=== PATIENT | female | born 1960 | race Two or more races ===

== ENCOUNTER 2020-04-19 04:26 | Inpatient (IN) | payer MEDICAID ==
[~2020-04-19] VITALS: Ht 165.1 cm; Wt 68.0 kg
[2020-04-19 06:43] VITALS: BP 142/83
--- NOTE | 2020-04-19 06:44 | NUR ---
PAGED HOSPITALIST FOR ADMITTING ORDERS AWAITING ORDERS WILL ENDORSE
--- NOTE | 2020-04-19 06:45 | NUR ---
FRONT END SPECIALIST RECEIVED PT FROM [facility] DIRECT ADMIT PT A/O X4, STABLE CONDITION IN NO APPARENT DISTRESS, VS STABLE, SAFETY MEASURES IN PLACE. PLACED ON CARDIAC CATH LAB MANAGER SR 70'S HR, KEPT CLEAN, DRY AND COMFORTABLE. WILL ENDORSE NEXT SHIFT FOR ADMIT ASSESSMENT.
--- NOTE | 2020-04-19 07:30 | NUR ---
RN Opening Received patient AO x 4, Moldovan speaking, able to responds all stimuli. Respiratory even and unlabored on room air 98%, no distress observed. Symmetric face smile, bilateral arm/leg left but c/o left hand numbness. Skin is warm to touch, kept clean/dry, intact IV site site. keep bed in lock with elevated HOB for ensure airway and aspiration precaution, call light within reach, will continue to monitor
[2020-04-19 11:53] LABS: BASOPHILS # (AUTO) 0.1 /CMM (0.0-0.2); BASOPHILS % (AUTO) 2.2 % (0.0-2.0); EOSINOPHILS % (AUTO) 0.9 % (0.0-6.0); HEMATOCRIT 37 % (33-45); HEMOGLOBIN 12.1 g/dL (11.5-14.8); LYMPHOCYTES % (AUTO) 20.1 % (20.0-44.0); MEAN CORPUSCULAR HGB CONC 32 g/dl (31.0-36.0); MEAN CORPUSCULAR VOLUME 83 fL (82-100); MONOCYTES # (AUTO) 0.4 /CMM (0.1-1.30); MONOCYTES % (AUTO) 7.1 % (2.0-12.0); NEUTROPHILS # (AUTO) 3.5 /CMM (1.8-8.9); NEUTROPHILS % (AUTO) 69.7 % (43.0-81.0); PLATELET COUNT (AUTO) 248 /CMM (150-450); RED BLOOD CELL COUNT(AUTO) 4.51 MIL/uL (4.0-5.2)
[2020-04-19] MEDS ORDERED: BLOOD SUGAR DIAGNOSTIC 1 EACH STRIP IN SCH (12:00)
[2020-04-19 12:16] LABS: CALCIUM, SERUM 8.7 mg/dL (8.5-10.1); CREATININE 0.8 mg/dL (0.6-1.3); POTASSIUM 3.7 mmol/L (3.5-5.1)
[2020-04-19] MEDS: ENOXAPARIN SODIUM 40 MG/0.4 ML DISP.SYRIN SQ SCH (12:40)
[2020-04-19] MEDS: BLOOD SUGAR DIAGNOSTIC 1 EACH STRIP IN SCH ×3 (12:41→21:07)
--- NOTE | 2020-04-19 12:53 | NUR ---
Patient has been ordered d/c to psych unit ordered by Dr. Hayes, clarified with Dr. Artem bryant to d/c to psych unit. Addendum: 04/19/20 at 1835 by ANN FUENTES RN Error
[2020-04-19] MEDS: MAG HYDROX/AL HYDROX/SIMETH 30 ML UDC PO PRN ×2 (12:58→20:56)
--- NOTE | 2020-04-19 18:37 | NUR ---
RN note Closing Patient resting in bed, remains AO x 4, does no c/o pain or distress, but numbness on left hand through wrist. Respiratory even and unlabored on room air. Skin is warm to touch keep clean/dry, intact IV site. Pt is on SCD for DVT prophylaxis. Keep bed in locked with elevated HOB and low position of bed. Call light within reach, will endorse shift production associate.
--- NOTE | 2020-04-19 19:30 | NUR ---
RN Opening Note Received patient in bed, AO x 4, able to responds all stimuli. Pt denies pain or any discomfort. Respiratory even and unlabored on room air. No resp distress. No sob. pts skin is warm to touch, keep clean/dry, intact IV site with SL. Keep low position of the bed with elevated HOB for ensure airway and bed in locked. Call light within reach, will continue to monitor. Addendum: 04/20/20 at 2347 by ARI SALDANA RN time documented [id number] at 04/20/20
--- NOTE | 2020-04-19 19:36 | NUR ---
MS RN RECEIVE PT A/O X 3, AWAKE WATCHING TV, NO S/S OF DISTRESS. STABLE CONDITION. SAFETY MEASURES AT ALL TIMES. WILL CONT TO MONITOR.
[2020-04-19 20:00] VITALS: BP 127/73
[2020-04-19] MEDS: ATORVASTATIN 40 MG TABLET PO SCH (21:08)
[2020-04-20] VITALS: BP_SYST 125; BP_SYST 128; BP_DIAS 76; BP_DIAS 78
[2020-04-20 04:00] VITALS: BP 121/72
--- NOTE | 2020-04-20 05:49 | NUR ---
TRENCHER DRIVER ASLEEP AND EASILY AWAKEN, IN NO APPARENT DISTRESS, SB 58'S HR IN TELE MONITOR, NO COMPLAIN OF CHEST PAIN, NEEDS ATTENDED AND ANTICIPATED, KEPT CLEAN, DRY AND COMFORTABLE AT ALL TIMES. SAFETY MEASURES IN PLACE. WILL ENDORSE TO NEXT SHIFT.
[2020-04-20] MEDS: BLOOD SUGAR DIAGNOSTIC 1 EACH STRIP IN SCH ×4 (05:59→21:15)
--- NOTE | 2020-04-20 07:30 | NUR ---
RN Opening Note Received patient in bed, AO x 4, able to responds all stimuli. Pt denies pain or any discomfort. Respiratory even and unlabored on room air, skin is warm to touch, keep clean/dry, intact IV site with SL. Keep low position of the bed with elevated HOB for ensure airway and bed in locked. Call light within reach, will continue to monitor.
[2020-04-20 08:00] VITALS: BP 113/79
[2020-04-20] MEDS: ENOXAPARIN SODIUM 40 MG/0.4 ML DISP.SYRIN SQ SCH (08:32)
[2020-04-20] MEDS: ASPIRIN EC 325 MG TABLET.DR PO SCH (08:32)
--- NOTE | 2020-04-20 09:39 | NUR ---
MRSA sample collected and put it in refrigerator, lab made aware
--- NOTE | 2020-04-20 10:30 | NUR ---
Obtained consent sign for MRI/brain.
--- NOTE | 2020-04-20 12:25 | NUR ---
Informed and OIL PIPE INSPECTOR/Coni regarding MRI result.
[2020-04-20 16:00] VITALS: BP 150/70
--- NOTE | 2020-04-20 18:13 | NUR ---
RN Closing Note Patient in bed, does no appears pain or distress. Respiratory even and unlabored on room air O2sat 98%, no distress observed. Skin is warm to touch, kept clean/dry, intact IV site with SL, Patient done PT/OT, MRI result informed MD. Keep bed in locked with HOB for ensure airway and aspiration precaution. Call light within reach, all needs met. Will endorse awake overnight monitor.
--- NOTE | 2020-04-20 19:30 | NUR ---
RN Opening Note Received patient in bed, AO x 4, able to responds all stimuli. Pt denies pain or any discomfort. Respiratory even and unlabored on room air. No resp distress. No sob. pts skin is warm to touch, keep clean/dry, intact IV site with SL. Keep low position of the bed with elevated HOB for ensure airway and bed in locked. Call light within reach, will continue to monitor.
[2020-04-20 20:00] VITALS: BP 119/77
[2020-04-20 20:32] VITALS: BP 119/77
[2020-04-20] MEDS: ATORVASTATIN 40 MG TABLET PO SCH (21:24)
--- NOTE | 2020-04-21 06:31 | NUR ---
RN Closing Note Patient in bed, does no appears pain or distress. Respiratory even and unlabored on room air O2sat 98%, no distress observed. IV, intact site with no redness. Keep bed in locked with HOB for ensure airway and aspiration precaution. Call light within reach, all needs met.
[2020-04-21] MEDS: BLOOD SUGAR DIAGNOSTIC 1 EACH STRIP IN SCH ×4 (06:39→22:18)
--- NOTE | 2020-04-21 08:00 | NUR ---
m/s front desk officer: initial assessment received pt in bed awake, a/ox4; ambulatory. pt still has difficulty grasping her left hand, but continue to do self exercise and arom. instructed to call for assistance. will continue to monitor.
[2020-04-21] MEDS: ASPIRIN EC 325 MG TABLET.DR PO SCH (08:45)
[2020-04-21] MEDS: ENOXAPARIN SODIUM 40 MG/0.4 ML DISP.SYRIN SQ SCH (08:48)
--- NOTE | 2020-04-21 11:00 | NUR ---
m/s hoop maker machine: md visit seen and examined by simon altamirano (acnp) at this time. updated plan of care.
--- NOTE | 2020-04-21 14:30 | NUR ---
m/s bell hole digger: notes urine collected via clean catch. called lab to strip picker the specimen in ref.
--- NOTE | 2020-04-21 15:24 | NUR ---
11:30am : Hobbing Machine Operator consult requested per Dr. Lopez. This SW met the patient at bedside. Patient was alert and oriented x4. This SW asked the patient if she preferred Israeli or South African for SW to conduct this assessment. The patient stated that she preferred Israeli. Patient is a 59-year-old female. Pt lives with her son, Bruno at [address] [place] [address]. Patients primary emergency contact is her son Elan followed by Bruno . Patient was indepenendt with her activities of daily living prior to this hospitalization. Patient reported that she has 4 children and 8 grandchildren, who she sees at a safe distance right now due to COVID-19. Patient shared that she is a cancer survivor, previously diagnosed with intestinal cancer. Patient shared that throughout all her medical problems, and current hospitalization, her family has been her main source of support. Patient reports that she does not receive any GR benefits and is financially supported by her 4 children, mainly her son Bruno who lives in the home. Patient reports no history of alcohol or drug use. Patient reports no Suicidal/Homicidal Ideations. Patient reports that she keeps active by doing house chores, cooking, and reading. Patient reports that she began to feel this sensation of a stroke on Tuesday. SW administered the PHQ-9 in the patients big sandy language of Israeli. Based on the patients responses, the patients score is at a 0. No further SS interventions needed at this time, however SW to remain available to the patient, as needed.
--- NOTE | 2020-04-21 16:00 | NUR ---
m/s photographer news: notes resting comfortable. no distress noted. left hand improving, pt continue doing self exercise and arom. instructed to call for assistance.
--- NOTE | 2020-04-21 17:30 | NUR ---
m/s mold swabber: notes having dinner at this time. instructed to call for assistance. needs attended.
[2020-04-21] MEDS: METFORMIN 500 MG TABLET PO SCH (17:32)
--- NOTE | 2020-04-21 19:15 | NUR ---
m/s title i coordinator: notes report given to gabriel (jeff) for continuity of care.
--- NOTE | 2020-04-21 19:34 | NUR ---
ms rn opening note received patient in bed. a/ox4, pashto speaking, able to make basic needs known. tolerating room air. respirations are even and unlabored. no s/s sob noted. no s/s pain at this time. in no apparent distress. iv access in right hand patent and saline locked. bed is low and locked, hob elevated in semi fowlers, side rials up x, call light within reach.will continue to monitor.
[2020-04-21 20:00] VITALS: BP 118/69
[2020-04-21] MEDS: ATORVASTATIN 40 MG TABLET PO SCH (22:18)
[2020-04-22] MEDS: BLOOD SUGAR DIAGNOSTIC 1 EACH STRIP IN SCH ×2 (06:47→12:10)
--- NOTE | 2020-04-22 07:03 | NUR ---
MS RN OPENING NOTES RECEIVED PT AWAKE IN BED AT THIS TIME. AOX4. MAURITIAN SPEAKING. NO SOB NOTED, NO C/O PAIN AT THIS TIME. NO S/S OF ANY ACUTE DISTRESS AT THIS TIME. RESPIRATIONS EVEN AND UNLABORED WITH EQUAL RISE AND FALL IN CHEST. IV ACCESS NOTED IN R-HAND G#20, INTACT, PATENT AND FLUSHING WELL. ASPIRATION AND SAFETY PRECAUTIONS IN PLACE. BED IN LOWEST LOCKED POSITION, HOB ELEVATED, SIDE RAILS UPX2, CALL LIGHT WITHIN REACH. WILL CONTINUE TO MONITOR
--- NOTE | 2020-04-22 07:30 | NUR ---
ms rn closing note patient in bed. a/ox4 tolerating room air. no resp distress, no c/o pain. no distress. iv access maintained in right hand patent and saline locked. bed remains low and locked, hob elevated in semi fowlers, side rials up x, call light within reach.will endorse to next shift.
[2020-04-22 08:00] VITALS: BP 108/61
[2020-04-22] MEDS ORDERED: CLOP75TA15 PO (08:10)
[2020-04-22] MEDS ORDERED: ATOR40TA PO (08:10)
[2020-04-22] MEDS ORDERED: ASPI-1498 PO (08:10)
[2020-04-22] MEDS: ENOXAPARIN SODIUM 40 MG/0.4 ML DISP.SYRIN SQ SCH (08:51)
[2020-04-22] MEDS: METFORMIN 500 MG TABLET PO SCH (08:55)
[2020-04-22] MEDS: ASPIRIN EC 325 MG TABLET.DR PO SCH (08:55)
--- NOTE | 2020-04-22 15:15 | NUR ---
MS NURSE SPECIALIST NOTES PT DISCHARGED HOME AT THIS TIME. PT IN STABLE CONDITION. ALL CARE, TREATMENT, NEEDS AND MEDICATIONS ADMINISTERED ANTICIPATED PER ORDER. PT KEPT CLEAN AND DRY, DISCHARGE INSTRUCTIONS PROVIDED FOR AND PT VERBALIZED UNDERSTANDING. IV ACCCESS IN R-HAND REMOVED, PRESSURE APPLIED, SECURED WITH GAUZE AND TAPE. NO SIGN OF BLEEDING OR INFILTRATION NOTED. ALL BELONGINGS ACCOUNTED FOR, SIGNED AND FILED IN CHART. PT TRANSPORTED TO [facility] BY PATRICIO GRAY ON WHEEL CHAIR. PT PICKED UP BY HALEIGH CORTES) IN PRIVATE CAR.
== END 2020-04-22 15:20 | disposition home or self-care (01) | DRG 45 ==
LOC: TELE 06:21 → MED 04-20 08:29
PROVIDERS: ADMIT Internal Medicine; ATTEND Nurse Practitioner Acute Care
DX: I63.9 Cerebral infarction, unspecified (principal); Z92.3 Personal history of irradiation; Z85.038 Personal history of other malignant neoplasm of large intestine; E11.9 Type 2 diabetes mellitus without complications; G81.94 Hemiplegia, unspecified affecting left nondominant side; R40.2362 Coma scale, best motor response, obeys commands, at arrival to emergency department; R40.2142 Coma scale, eyes open, spontaneous, at arrival to emergency department; R40.2252 Coma scale, best verbal response, oriented, at arrival to emergency department; R29.700 NIHSS score 0
CPT/HCPCS: 36415; 70551-TC; 80048-TC; 80061-TC; 80305; 82962-TC; 83036-TC; 85025-TC; 85652-TC; 87081-TC; 92521; 92611-TC; 93307-TC; 93880-TC; 97112-TC; 97116-TC; 97530-TC; G0378; J1650

== ENCOUNTER 2020-06-22 12:34 | Emergency (ER) | payer MEDICAID ==
[~2020-06-22] VITALS: Ht 160 cm; Wt 61.2 kg
[~2020-06-22 12:34] MED LIST: ASPI-1498 PO; ATOR40TA PO; CLOP75TA15 PO
--- NOTE | 2020-06-22 12:47 | NUR ---
c/o neck pain and bilateral leg numbness x 2 weeks, 8/10 pain scale, denies trauma or injury. to ER bed 10, hooked to BP cuff and POX, changed to hosp gown, warm blanket provided, patient AAO x 4, breathing even and unlabored, NAD noted. awaiting MD xavier.
--- NOTE | 2020-06-22 14:38 | NUR ---
Dr Chang at bedside for eval
[2020-06-22] MEDS ORDERED: LORAZEPAM 0.5 MG TABLET ONE (15:00)
[2020-06-22] MEDS ORDERED: LORAZEPAM 0.5 MG TABLET PO ONE (15:00)
--- NOTE | 2020-06-22 15:06 | NUR ---
Patient discharged to home in stable condition. Written and verbal after care instructions given. Patient verbalizes understanding of instruction.
[2020-06-22 15:07] VITALS: BP 142/83
== END 2020-06-22 15:07 | disposition home or self-care (01) ==
LOC: ER 12:36
DX: F41.9 Anxiety disorder, unspecified (principal); R20.2 Paresthesia of skin; E11.9 Type 2 diabetes mellitus without complications; Z93.3 Colostomy status; Z85.038 Personal history of other malignant neoplasm of large intestine; Z79.82 Long term (current) use of aspirin; Z79.899 Other long term (current) drug therapy

== ENCOUNTER 2021-12-22 19:12 | Inpatient (IN) | payer MEDICAID ==
[~2021-12-22] VITALS: Ht 309.9 cm; Wt 65.8 kg
--- NOTE | 2021-12-22 19:20 | NUR ---
BIBFAMILY. R ARM & R LEG NUMBNESS & SLURRED SPEECH LKWT: 1830. UPON TRIAGE NO WEAKNESS NOTED OR SLURRED SPEECH NOTED. PT A/O X4. TOLERATING R/A WELL WITH NO SOB. CONNECTED PT TO POX AND MONITOR.
--- NOTE | 2021-12-22 19:23 | NUR ---
DR. FITO PHAM AT PT'S BEDSIDE
--- NOTE | 2021-12-22 19:26 | NUR ---
TELEMED REQUEST SENT.
[2021-12-22] MEDS ORDERED: IV NS 0.9% 250 ML IV ONE (19:27)
[2021-12-22] MEDS ORDERED: IOHEXOL-350 100 ML VIAL IV ONE (19:27)
[2021-12-22] MEDS ORDERED: CT SWABBABLE VALVE TRANS SET 1 EA INFUS.SET MC ONE (19:27)
--- NOTE | 2021-12-22 19:29 | NUR ---
PT TAKEN TO CT VIA KERI
--- NOTE | 2021-12-22 19:50 | NUR ---
LAC #20G S/L; PATENT AND INTACT RFA #22G S/L BLOOD COLLECTED AND SENT TO LAB
--- NOTE | 2021-12-22 20:01 | NUR ---
PT RETURNED TO ER BED [address]
[2021-12-22 20:03] LABS: BASOPHILS % (AUTO) 0.4 % (0.0-2.0); EOSINOPHILS % (AUTO) 3.3 % (0.0-6.0); HEMATOCRIT 36 % (33-45); HEMOGLOBIN 11.9 g/dL (11.5-14.8); LYMPHOCYTES # (AUTO) 1.4 K/uL (0.8-4.8); LYMPHOCYTES % (AUTO) 24.4 % (20.0-44.0); MEAN CORPUSCULAR HGB CONC 33 g/dl (31.0-36.0); MEAN CORPUSCULAR VOLUME 78 fL (82-100); MONOCYTES # (AUTO) 0.5 K/uL (0.1-1.30); MONOCYTES % (AUTO) 8.6 % (2.0-12.0); NEUTROPHILS # (AUTO) 3.5 K/uL (1.8-8.9); NEUTROPHILS % (AUTO) 63.3 % (43.0-81.0); PLATELET COUNT (AUTO) 275 K/uL (150-450); RED BLOOD CELL COUNT(AUTO) 4.65 MIL/uL (4.0-5.2); WHITE BLOOD COUNT (AUTO) 5.6 K/uL (4.3-11.0)
--- NOTE | 2021-12-22 20:03 | NUR ---
MONEY POSITION OFFICER AT PT'S BEDSIDE
--- NOTE | 2021-12-22 20:11 | NUR ---
PT PROMOTION OFFICER WITH TELEHEALTH CALL WITH DR. JOYA
[2021-12-22 20:13] LABS: CALCIUM, SERUM 8.6 mg/dL (8.5-10.1); CARBON DIOXIDE 24 mmol/L (21-32); CHLORIDE 104 mmol/L (98-107); CREATININE 0.7 mg/dL (0.6-1.3); GLUCOSE 102 mg/dL (74-106); POTASSIUM 3.6 mmol/L (3.5-5.1); SODIUM SERUM 136 mmol/L (136-145); UREA NITROGEN, BLOOD 15 mg/dL (7-18)
--- NOTE | 2021-12-22 20:23 | NUR ---
DR. FITO PHAM ON PHONECALL WITH DR. DAWSON NEUROLOGIST.
[2021-12-22] MEDS ORDERED: CLOPIDOGREL BISULFATE 75 MG TABLET ONE (20:30)
[2021-12-22] MEDS ORDERED: CLOPIDOGREL BISULFATE 300 MG TABLET PO ONE (20:30)
--- NOTE | 2021-12-22 20:31 | NUR ---
COVID SWAB DONE AND SENT TO LAB
[2021-12-22] MEDS ORDERED: ONDANSETRON HCL/PF 4 MG/2 ML VIAL IVP PRN (21:30)
[2021-12-22] MEDS ORDERED: ACETAMINOPHEN 325 MG TABLET PO PRN (21:30)
[2021-12-22] MEDS ORDERED: MORPHINE SULFATE INJ 2 MG/ML DISP.SYRIN IV PRN (21:30)
[2021-12-22] MEDS ORDERED: hydrALAZINE HCL IV 20 MG VIAL IV PRN (21:30)
--- NOTE | 2021-12-22 21:35 | NUR ---
US TECH AT PT'S BEDSIDE
--- NOTE | 2021-12-22 23:07 | NUR ---
ROOM 311-2
--- NOTE | 2021-12-22 23:23 | NUR ---
REPORT GIVEN TO OPAL HaywoodW RN FOR JAYRO
--- NOTE | 2021-12-22 23:39 | NUR ---
DR. KURTZ AT PT'S BEDSIDE
[2021-12-23] VITALS (8 sets, daily range): BP systolic 109–138; BP diastolic 59–81
--- NOTE | 2021-12-23 00:09 | NUR ---
PT TRANSFERRED TO [facility] VIA ACLS PROTOCOL. VSS. ALL BELONGINGS AT PT'S BEDSIDE
[2021-12-23] MEDS: ATORVASTATIN 40 MG TABLET PO SCH ×2 (01:20→21:15)
[2021-12-23] MEDS: ENOXAPARIN SODIUM 40 MG/0.4 ML DISP.SYRIN SQ SCH ×2 (01:21→21:16)
--- NOTE | 2021-12-23 01:48 | NUR ---
RN NOTES 0005=PT RECEIVED IN [facility]ABLE TO MAKE NEEDS KNOWN.NO SIGN SOB/DISTRESS NOTED.NO COMPLAINE OF PAIN/DISCOMFORT.VITAL SIGN WITHIN NORMAL LIMITS IN RECORDED.PT COMFORTABLE POSITION.BED LOW AND LOCKED POSITION.CALL LIGHT WITHIN REACH.SAFETY MEASURE IN PLACE.WILL CONTINUE TO MONITOR.
--- NOTE | 2021-12-23 04:47 | NUR ---
RN NOTES INFORMED JERARDO BERGMAN RE: PT COMPLAINED OF ANXIETY.
[2021-12-23] MEDS ORDERED: LORAZEPAM 1 MG TABLET PO ONE (05:00)
--- NOTE | 2021-12-23 06:30 | NUR ---
RN CLOSING NOTES PT IN BED AOX3 SLEEPING WITH ROOM AIR KERVIN,WELL.NO SIGN SOB/DISTRESS NOTED.PT HAS A RFA #22G AND LAC #22G.PATENT AND INTACT.CALL LIGHT WITH IN REACH.SAFETY MEASURE IN PLACED.BED IN LOW AND LOCKED POSITION.WILL ENDORSE NEXT NURSE.
[2021-12-23 07:21] LABS: ALBUMIN 3.4 g/dL (3.4-5.0); BILIRUBIN,TOTAL 0.5 mg/dL (0.2-1.0); CALCIUM, SERUM 8.2 mg/dL (8.5-10.1); CREATININE 0.8 mg/dL (0.6-1.3); MAGNESIUM 2.4 mg/dL (1.8-2.4); PHOSPHORUS 4.1 mg/dL (2.5-4.9); POTASSIUM 3.6 mmol/L (3.5-5.1); TOTAL PROTEIN, SERUM 7.1 g/dL (6.4-8.2)
[2021-12-23 07:40] LABS: BASOPHILS % (AUTO) 0.5 % (0.0-2.0); EOSINOPHILS % (AUTO) 5.8 % (0.0-6.0); HEMATOCRIT 36 % (33-45); HEMOGLOBIN 11.6 g/dL (11.5-14.8); LYMPHOCYTES % (AUTO) 20.9 % (20.0-44.0); MEAN CORPUSCULAR HGB CONC 32 g/dl (31.0-36.0); MEAN CORPUSCULAR VOLUME 79 fL (82-100); MONOCYTES # (AUTO) 0.4 K/uL (0.1-1.30); MONOCYTES % (AUTO) 7.9 % (2.0-12.0); NEUTROPHILS # (AUTO) 3.1 K/uL (1.8-8.9); NEUTROPHILS % (AUTO) 64.9 % (43.0-81.0); PLATELET COUNT (AUTO) 252 K/uL (150-450); RED BLOOD CELL COUNT(AUTO) 4.54 MIL/uL (4.0-5.2); WHITE BLOOD COUNT (AUTO) 4.8 K/uL (4.3-11.0)
--- NOTE | 2021-12-23 07:47 | NUR ---
RN OPENING NOTES Patient seen comfortably lying in bed, no apparent distress noted, respirations even and unlabored, no shortness of breath, denies any pain or discomfort at this time, no grimacing. Call light left within reach, safety precautions in place, brakes locked, side rails up X 2, will monitor closely for any changes.
[2021-12-23] MEDS: CLOPIDOGREL BISULFATE 75 MG TABLET PO SCH (08:19)
[2021-12-23] MEDS: ASPIRIN EC 81 MG TABLET.DR PO SCH (08:19)
[2021-12-23] MEDS: LISINOPRIL (10MG) 10 MG TABLET PO SCH (08:20)
--- NOTE | 2021-12-23 19:51 | NUR ---
RN CLOSING NOTES Patient lying in bed, no apparent distress noted, no shortness of breath, breathing even and unlabored, no dizziness, no palpitations, no chest pain, remained afebrile. All due medications given per MD order, tolerating well. Patient has peripheral IV lines on her right forearm and left antecubital, covered with clean, intact and dry dressings and no swelling, no redness, no c/o pain or discomfort at site. Aspiration precautions observed at all times, kept head of bed elevated, all needs anticipated, kept clean and dry, patient repositioned frequently, safety precautions in place, frequent visual checks rendered, side rails up X 2, brakes locked, call light left within reach, will endorse to next shift for continuity of care.
--- NOTE | 2021-12-23 20:00 | NUR ---
DIRECTOR ENGINEERING OPENING NOTE PATIENT SLEEPING IN BED, EASILY AWAKENED, PT ALERT/ORIENTED X 4, PT ABLE TO MAKE NEEDS KNOWN. PATIENT IS INDIAN SPEAKING. PT STABLE ON RA, NO S/S OF DISTRESS OR SOB NOTED, BREATHING EVEN AND UNLABORED. PATIENT ON EXTERNAL RN OR LPN READING SINUS RHYTHM, HR: 72. IV ACCESS ON RIGHT FOREARM #22G AND LEFT AC #20G INTACT AND SALINE LOCKED. PATIENT AMBULATORY WITH [facility]. SAFETY MEASURES IN PLACE: CALL LIGHT WITHIN REACH, SIDE RAILS UP X 2, BED LOCKED IN LOWEST POSITION. WILL CONTINUE TO MONITOR PATIENT
--- NOTE | 2021-12-23 22:17 | NUR ---
HEEL CEMENTER NOTE PATIENT C/O DIARRHEA, STATED SHE DRANK PRUNE JUICE TODAY BECAUSE SHE WAS CONSTIPATED AND HAS HAD 7 EPISODES OF DIARRHEA NOW, REQUESTING ANTI-DIARRHEAL MEDICATION. CONTACTED PIPELINES MANAGER MD WITH ORDER FOR IMODIUM 4 MG PO ONE TIME ORDER. ORDER CARRIED OUT. WILL CONTINUE TO MONITOR PATIENT
[2021-12-23] MEDS ORDERED: LOPERAMIDE HCL (2 MG CAP) 2 MG CAPSULE PO ONE (22:30)
[2021-12-23] MEDS ORDERED: LOPERAMIDE HCL (2 MG CAP) 2 MG CAPSULE ONE (22:42)
[2021-12-24] VITALS: BP 121/70
[2021-12-24 04:00] VITALS: BP 105/58
[2021-12-24 06:30] LABS: BASOPHILS % (AUTO) 0.5 % (0.0-2.0); EOSINOPHILS % (AUTO) 7.2 % (0.0-6.0); HEMATOCRIT 36 % (33-45); HEMOGLOBIN 11.8 g/dL (11.5-14.8); LYMPHOCYTES # (AUTO) 0.9 K/uL (0.8-4.8); LYMPHOCYTES % (AUTO) 20.5 % (20.0-44.0); MEAN CORPUSCULAR HGB CONC 33 g/dl (31.0-36.0); MEAN CORPUSCULAR VOLUME 78 fL (82-100); MONOCYTES # (AUTO) 0.3 K/uL (0.1-1.30); MONOCYTES % (AUTO) 7.5 % (2.0-12.0); NEUTROPHILS # (AUTO) 2.8 K/uL (1.8-8.9); NEUTROPHILS % (AUTO) 64.3 % (43.0-81.0); PLATELET COUNT (AUTO) 261 K/uL (150-450); RED BLOOD CELL COUNT(AUTO) 4.59 MIL/uL (4.0-5.2); WHITE BLOOD COUNT (AUTO) 4.3 K/uL (4.3-11.0)
--- NOTE | 2021-12-24 06:55 | NUR ---
TRASH COLLECTOR TRUCK DRIVER CLOSING NOTE PATIENT SLEEPING IN BED, EASILY AWAKENED, PT ALERT/ORIENTED X 4, PT ABLE TO MAKE NEEDS KNOWN. PATIENT IS GUAMANIAN SPEAKING. PT STABLE ON RA, NO S/S OF DISTRESS OR SOB NOTED, BREATHING EVEN AND UNLABORED. PATIENT ON EXTERNAL MACHINE COREMAKER READING SINUS RHYTHM, HR: 68. PATIENT AMBULATORY WITH BRP. PATIENT HAD NO MORE EPISODES OF DIARRHEA. MEDICATIONS GIVEN ORDERED, PT NEEDS MET THROUGHOUT SHIFT. SAFETY MEASURES IN PLACE: CALL LIGHT WITHIN REACH, SIDE RAILS UP X 2, BED LOCKED IN LOWEST POSITION. WILL ENDORSE TO DAY SHIFT NURSE FOR CONTINUITY OF CARE
[2021-12-24 07:23] LABS: CALCIUM, SERUM 8.5 mg/dL (8.5-10.1); CREATININE 0.7 mg/dL (0.6-1.3); MAGNESIUM 2.3 mg/dL (1.8-2.4); PHOSPHORUS 4.2 mg/dL (2.5-4.9); POTASSIUM 3.9 mmol/L (3.5-5.1)
--- NOTE | 2021-12-24 07:26 | NUR ---
ms rn received on bed, awake,alert,oriented x4,mohawk speaking ,not in any form of distress, respirations even and unlabored,no sob noted, denies pain at this time, will monitor patient.
[2021-12-24 08:00] VITALS: BP 126/68
--- NOTE | 2021-12-24 09:10 | NUR ---
ms rn due meds given tolerated well.
[2021-12-24] MEDS: LISINOPRIL (10MG) 10 MG TABLET PO SCH (09:32)
[2021-12-24] MEDS: CLOPIDOGREL BISULFATE 75 MG TABLET PO SCH (09:32)
[2021-12-24] MEDS: ASPIRIN EC 81 MG TABLET.DR PO SCH (09:32)
[2021-12-24 11:56] VITALS: BP 126/70
[2021-12-24 16:00] VITALS: BP 121/64
--- NOTE | 2021-12-24 16:30 | NUR ---
ms rn on bed,no distress noted.
--- NOTE | 2021-12-24 17:37 | NUR ---
ms rn ready to go home, waiting for her family,no distress noted.
--- NOTE | 2021-12-24 18:12 | NUR ---
ms rn patient went home accompanied by son, all needs attended.
== END 2021-12-24 18:00 | disposition home or self-care (01) | DRG 47 ==
LOC: ER 19:14 → TELE 22:41
PROVIDERS: ADMIT Internal Medicine; ATTEND Nurse Practitioner Acute Care
DX: G45.9 Transient cerebral ischemic attack, unspecified (principal); G81.91 Hemiplegia, unspecified affecting right dominant side; R47.01 Aphasia; E11.9 Type 2 diabetes mellitus without complications; Z93.3 Colostomy status; Z20.822 Contact with and (suspected) exposure to COVID-19; Z85.038 Personal history of other malignant neoplasm of large intestine; Z79.02 Long term (current) use of antithrombotics/antiplatelets; Z79.82 Long term (current) use of aspirin; Z79.890 Hormone replacement therapy; Z91.14 Patient's other noncompliance with medication regimen; R03.0 Elevated blood-pressure reading, without diagnosis of hypertension; F43.9 Reaction to severe stress, unspecified; Z86.16 Personal history of COVID-19; Z86.73 Personal history of transient ischemic attack (TIA), and cerebral infarction without residual deficits
CPT/HCPCS: 36415; 70450-TC; 70496-TC; 70498-TC; 71045-TC; 80048-TC; 80053-TC; 82962-TC; 83735-TC; 84100-TC; 84484-TC; 85025-TC; 85730-TC; 87081-TC; 93307-TC; 97116-TC; 97530-TC; G0378; J1650; J7050; Q9967

== ENCOUNTER 2023-07-30 21:12 | Emergency (ER) | payer MEDICAID, OTHER ==
[~2023-07-30] VITALS: Ht 142.2 cm; Wt 59.0 kg
[2023-07-30] MEDS ORDERED: IBUPROFEN 400 MG TABLET ONE (21:39)
[2023-07-30] MEDS: IBUPROFEN 400 MG TABLET PO ONE (21:41)
[2023-07-30] MEDS ORDERED: IBUP-1957 PO (22:13)
[2023-07-30] MEDS ORDERED: PANT40TA2 PO (22:13)
[2023-07-30 22:43] VITALS: BP 131/74; TEMP 98.2; O2SAT 100
== END 2023-07-30 22:44 | disposition home or self-care (01) ==
LOC: EDUNIT# 21:12 → ER 21:16
DX: S29.012A Strain of muscle and tendon of back wall of thorax, initial encounter (principal); E11.9 Type 2 diabetes mellitus without complications; Z90.49 Acquired absence of other specified parts of digestive tract; X58.XXXA Exposure to other specified factors, initial encounter; Y93.89 Activity, other specified; Y92.89 Other specified places as the place of occurrence of the external cause; Y99.8 Other external cause status
CPT/HCPCS: 72074-TC